=== PATIENT | female | born 1960 | race Caucasian/White ===

== ENCOUNTER 2023-06-12 01:54 | Observation (INO) | payer BC ==
[2023-06-12] MEDS ORDERED: NALOXONE 0.4 MG/ML 1 ML VIAL IV PRN ×2 (02:48→09:43)
[2023-06-12] MEDS ORDERED: ONDANSETRON 4 MG/2 ML VIAL IVP PRN ×2 (02:48→09:43)
--- NOTE | 2023-06-12 02:53 | ED ---
Recheck HPI - General Chief Complaint: Abdominal Pain Stated Complaint: Appendicitis Time Seen by Provider: 06/12/23 01:56 Source: patient, EMS, RN notes reviewed, old records reviewed Mode of arrival: EMS Limitations: no limitations - History of Present Illness Initial Comments: This is a 62-year-old female to the ER for evaluation today. Patient Dese for evaluation of acute appendicitis patient will be placed on persistent IV antibiotics, pain control and surgical consultation MD Complaint: abnormal lab (acute appendicitis) -: days(s) Returns Today for: needs IV antibiotics, persistent/worsening pain related to initial visit Symptoms Since Prior Visit: worsening pain Associated Symptoms: none Treatments Prior to Arrival: Given Antibiotics on, Given Pain Meds on - Related Data Home Medications Medication Instructions Recorded Confirmed Travsi/D3/Mag11/Zinc/Nailer Operator/Devonte/Bor 1 tab PO BID 06/12/23 06/12/23 [Caltrate 600+D Plus Tablet] Cyanocobalamin (Vitamin B-12) 1,000 mcg PO DAILY 06/12/23 06/12/23 [Vitamin B-12] Ezetimibe [Zetia] 10 mg PO HS 06/12/23 06/12/23 Fenofibrate Nanocrystallized 145 mg PO HS 06/12/23 06/12/23 [Fenofibrate] Irbesartan/Hydrochlorothiazide 1 tab PO DAILY 06/12/23 06/12/23 [Avalide 300-12.5 mg Tablet] Pravastatin Sodium [Pravachol] 40 mg PO HS 06/12/23 06/12/23 Ubidecarenone [Coenzyme Q10] 100 mg PO DAILY 06/12/23 06/12/23 metFORMIN HCL [Glucophage] 500 mg PO BID 06/12/23 06/12/23 Previous Rx's Medication Instructions Recorded Acetaminophen Tab [Tylenol] 650 mg PO Q6HR PRN tab 06/13/23 Ibuprofen [Motrin] 600 mg PO Q8HR PRN #30 tab 06/13/23 Levofloxacin [Levaquin] 500 mg PO DAILY 10 Days #10 tab 06/13/23 metroNIDAZOLE [Flagyl] 500 mg PO TID 10 Days #30 tab 06/13/23 oxyCODONE HCL [OxyIR] 5 mg PO Q6H PRN 3 Days #12 tab 06/13/23 Allergies Allergy/AdvReac Type Severity Reaction Status Date / Time No Known Allergies Allergy Verified 06/12/23 11:11 Review of Systems ROS Statement: Those systems with pertinent positive or pertinent negative responses have been documented in the HPI. ROS Other: All systems not noted in ROS Statement are negative. Past Medical History Past Medical History: Hyperlipidemia, Hypertension Past Surgical History: Hysterectomy Smoking Status: Never smoker Past Alcohol Use History: None Reported Past Drug Use History: None Reported General Exam Limitations: no limitations General appearance: alert, in no apparent distress Head exam: Present: atraumatic, normocephalic, normal inspection Eye exam: Present: normal appearance, PERRL, EOMI. Absent: scleral icterus, conjunctival injection, periorbital swelling ENT exam: Present: normal exam, mucous membranes moist Neck exam: Present: normal inspection. Absent: tenderness, meningismus, lymphadenopathy Respiratory exam: Present: normal lung sounds bilaterally. Absent: respiratory distress, wheezes, rales, rhonchi, stridor Cardiovascular Exam: Present: regular rate, normal rhythm, normal heart sounds. Absent: systolic murmur, diastolic murmur, rubs, gallop, clicks GI/Abdominal exam: Present: soft, normal bowel sounds. Absent: distended, tenderness, guarding, rebound, rigid Extremities exam: Present: normal inspection, full ROM, normal capillary refill. Absent: tenderness, pedal edema, joint swelling, calf tenderness Back exam: Present: normal inspection Neurological exam: Present: alert, oriented X3, CN II-XII intact Psychiatric exam: Present: normal affect, normal mood Skin exam: Present: warm, dry, intact, normal color. Absent: rash Course Vital Signs 06/12/23 06/12/23 01:56 03:23 Temperature 98.7 F Pulse Rate 90 73 Respiratory 18 18 Rate Blood Pressure 160/62 122/55 O2 Sat by Pulse 97 97 Oximetry - Reevaluation(s) Reevaluation #1: 06/12/23 02:53 Medical record is reviewed Reevaluation #2: 06/12/23 02:53 Patient's pain is improved Reevaluation #3: 06/12/23 02:53 Patient informed results questions answered Reevaluation #4: 06/12/23 02:53 Was pt. sent in by a medical professional or institution (, PA, RECONCILING CLERK, urgent care, hospital, or [facility]...) When possible be specific @ -no Did you speak to anyone other than the patient for history (EMS, parent, family, police, friend...)? What history was obtained from this source @ -no Did you review nursing and triage notes (agree or disagree)? Why? @ -agree Are old charts reviewed (outside hosp., previous admission, EMS record, old EKG, old radiological studies, urgent care reports/EKG's, [facility] records)? Report findings @ -yes Differential Diagnosis (chest pain, altered mental status, abdominal pain women, abdominal pain men, vaginal bleeding, weakness, fever, dyspnea, syncope, headache, dizziness, GI bleed, back pain, seizure, CVA, palpatations, mental health, musculoskeletal)? @ -prior EKG interpreted by me (3pts min.). @ -yes X-rays interpreted by me (1pt min.). @ -yes CT interpreted by me (1pt min.). @ -yes positive for acute appendicitis U/S interpreted by me (1pt. min.). @ -no What testing was considered but not performed or refused? (CT, X-rays, U/S, labs)? Why? @ -none What meds were considered but not given or refused? Why? @ -none Did you discuss the management of the patient with other professionals (professionals i.e. , PA, RECONCILING CLERK, lab, RT, psych nurse, director of social work, electrical fitter, teacher, traffic control officer, lining caser)? Give summary @ -no Was smoking cessation discussed for >3mins.? @ -no Was critical care preformed (if so, how long)? @ -no Were there social determinants of health that impacted care today? How? (Homelessness, low income, unemployed, alcoholism, drug addiction, transportation, low edu. Level, literacy, decrease access to med. care, fpc, rehab)? @ -none Was there de-escalation of care discussed even if they declined (Discuss DNR or withdrawal of care, Hospice)? DNR status @ -no What co-morbidities impacted this encounter? (DM, HTN, Smoking, COPD, CAD, Cancer, CVA, ARF, Chemo, Hep., AIDS, mental health diagnosis, sleep apnea, morbid obesity)? @ -none Was patient admitted / discharged? Hospital course, mention meds given and route, prescriptions, significant lab abnormalities, going to OR and other perti nent info. @ - 62 female to the ER accepted in transfer for acute appendicitis patient will admit for surgical consultation and IV antibiotics Admitted Undiagnosed new problem with uncertain prognosis? @ -no Drug Therapy requiring intensive monitoring for toxicity (Heparin, Nitro, Insulin, Cardizem)? @ -no Were any procedures done? @ -no Diagnosis/symptom? @ -Acute appendicitis Acute, or Chronic, or Acute on Chronic? @ -Acute Uncomplicated (without systemic symptoms) or Complicated (systemic symptoms)? @ -Complicated Side effects of treatment? @ -no Exacerbation, Progression, or Severe Exacerbation? @ -exacerbation Poses a threat to life or bodily function? How? (Chest pain, USA, CA, pneumonia, PE, COPD, DKA, ARF, appy, cholecystitis, CVA, Diverticulitis, Homicidal, Suicidal, threat to staff... and all critical care pts) @ -yes Reevaluation #5: 06/12/23 02:53 Differential Abdominal Pain Men: Appendicitis, cholecystitis, diverticulosis, ischemic bowel, pancreatitis, hepatitis, UTI, gastroenteritis, AAA, incarcerated hernia, bowel obstruction, constipation, inflammatory bowel, hepatitis, peptic ulcer disease, splenic infarction, perforated viscus, testicular torsion, this is not meant to be an all-inclusive list - Consultations Consultation #1: Spoke with surgical pharmacy operations manager who will admit this patient Medical Decision Making - Medical Decision Making 62 female to the ER accepted in transfer for acute appendicitis patient will admit for surgical consultation and IV antibiotics - Radiology Data Radiology results: report reviewed (CT of the abdomen and pelvis negative for acute disease) Disposition Clinical Impression: Abdominal pain, Acute appendicitis Disposition: ADMITTED IP TO THIS [facility] Condition: Stable Is patient prescribed a controlled substance at d/c from ED?: No Time of Disposition: 03:00
[2023-06-12] MEDS: SODIUM CHLORIDE 0.9% 1,000 ML IV SCH (02:55)
[2023-06-12] MEDS: MORPHINE SULFATE 4 MG/ML SYRINGE IV PRN (03:07)
[2023-06-12 06:42] VITALS: RESP 16
--- NOTE | 2023-06-12 08:49 | P.GSHP ---
History of Present Illness H&P Date: 06/12/23 Chief Complaint: Acute appendicitis This is a 62-year-old female who was transferred from [facility] last night due to complaints of abdominal pain. Patient underwent computed tomography scan shows evidence of appendicitis. Patient states she's had pain for approximately 24-36 hours. Patient was admitted to the local surgeon last night. Past Medical History Past Medical History: Hyperlipidemia, Hypertension Additional Past Medical History / Comment(s): prediabetic History of Any Multi-Drug Resistant Organisms: None Reported Past Surgical History: Hysterectomy Smoking Status: Never smoker Past Alcohol Use History: None Reported Past Drug Use History: None Reported Medications and Allergies Allergies Allergy/AdvReac Type Severity Reaction Status Date / Time No Known Allergies Allergy Verified 06/12/23 01:59 Surgical - Exam Vital Signs Temp Pulse Resp BP Pulse Ox 98.7 F 90 18 160/62 97 06/12/23 01:56 06/12/23 01:56 06/12/23 01:56 06/12/23 01:56 06/12/23 01:56 - General well developed, well nourished, no distress - Eyes PERRL - ENT normal pinna - Neck no masses - Respiratory normal expansion - Cardiovascular Rhythm: regular - Abdomen Pain right lower quadrant Abdomen: soft, tender Assessment and Plan Assessment: Acute appendicitis. Patient will undergo laparoscopic appendectomy.
[2023-06-12] MEDS ORDERED: ROCURONIUM 10 MG/ML (5 ML VIAL) IV ONE (09:04)
[2023-06-12] MEDS ORDERED: MIDAZOLAM 2 MG/2 ML VIAL ONE (09:04)
[2023-06-12] MEDS ORDERED: SUCCINYLCHOLINE CHLORIDE 200 MG/10 ML VIAL IV ONE (09:04)
[2023-06-12] MEDS ORDERED: PROPOFOL 10 MG/ML 20 ML VIAL IV ONE (09:04)
[2023-06-12] MEDS ORDERED: fentaNYL (PF) 50 MCG/ML 2 ML AMP ONE (09:04)
[2023-06-12] MEDS ORDERED: LIDOCAINE 1% INJ 10MG/ML (20 ML MDV) ONE (09:04)
[2023-06-12] MEDS ORDERED: SUGAMMADEX SODIUM 200 MG/2 ML SDV IV ONE (09:04)
[2023-06-12] MEDS: IV FLUID CONTINUATION 1,000 ML IV ONE (09:05)
[2023-06-12] MEDS: DEXAMETHASONE SOD PHOSPHATE 4 MG/ML 1 ML VIAL IVP ONE (09:05)
[2023-06-12] MEDS: ONDANSETRON 4 MG/2 ML VIAL IVP ONE (09:05)
[2023-06-12] MEDS: SODIUM CHLORIDE 0.9% 1,000 ML IV ONE (09:08)
[2023-06-12] MEDS: SODIUM CHLORIDE 0.9% 50 ML with ceFAZolin 2,000 MG IV ONE (09:23)
[2023-06-12] MEDS: BUPIVACAINE (PF) 0.25% 30 ML VIAL SQ ONE (09:25)
[2023-06-12] MEDS: LACTATED RINGERS 1,000 ML IV ONE ×2 (09:33→12:45)
--- NOTE | 2023-06-12 09:42 | P.OP ---
Date of Procedure: 06/12/23 Preoperative Diagnosis: Acute appendicitis Postoperative Diagnosis: Acute appendicitis Procedure(s) Performed: Laparoscopic appendectomy Anesthesia: SONIA Surgeon: Luis Andres Estimated Blood Loss (ml): 5 Pathology: other (Appendix) Condition: stable Disposition: PACU Description of Procedure: The patient's placed on the operating table in the supine position. The patient received general anesthesia. The abdomen was prepped and draped in the usual sterile fashion. The skin was anesthetized 1% local Xylocaine at the trocar sites. Using an 11 blade the skin was incised at the umbilicus. The umbilicus was grasped with a [place] clamp and then a Veress needle was placed into the peritoneal cavity. Position of the Veress needle was confirmed with positive drop test. After adequate insufflation a 5 mm trocar was placed into the peritoneal cavity. The abdomen was further insufflated. And then the laparoscope was placed in the peritoneal cavity. Next a 5 mm trocar was placed in the midline suprapubic position. And then a 10 mm trocar was placed in the midline epigastric position. The patient was rotated with the right side up and in Trendelenburg. The appendix was visualized. The appendix appeared to be inflamed. The appendix was grasped and then using the Harmonic scissors the mesoappendix was divided. A PDS Endoloop was then placed around the base of the appendix. And then the appendix was divided using Harmonic scissors. The appendix was placed into an Endo Catch and brought out through the 10 mm trocar site. The abdomen was irrigated. There is no bleeding seen. The trochars withdrawn. The skin was closed interrupted 3-0 Monocryl suture. Dermabond dressing was applied. Patient was sent to recovery room in stable condition.
[2023-06-12] MEDS ORDERED: HYDROmorphone 0.5 MG/0.5 ML SYRINGE IVP PRN (09:43)
[2023-06-12] MEDS: CLINDAMYCIN 600 MG in DEXTROSE 5% IN WATER 50 ML IVPB STA (09:52)
[2023-06-12 09:59] LABS: Glucose,Whole Blood 107 mg/dL (70-110)
[2023-06-12] MEDS: HYDROmorphone 0.5 MG/0.5 ML SYRINGE IVP ONE (10:06)
[2023-06-12] MEDS: KETOROLAC 15 MG/ML 1 ML VIAL IVP SCH (12:34)
[2023-06-12] MEDS: PANTOPRAZOLE 40 MG/10 ML VIAL IV SCH (12:35)
[2023-06-12] MEDS ORDERED: DEXTROSE 50% SYRINGE 50 ML IVP PRN ×2 (14:09)
--- NOTE | 2023-06-12 14:11 | P.CONS ---
History of Present Illness - Reason for Consult Consult date: 06/12/23 Medical management Requesting physician: Luis Andres - Chief Complaint Abdominal pain - History of Present Illness This is a pleasant 62-year-old patient, follows with Dr. Mohan. Chronic stable medical conditions include hypertension, hyperlipidemia, prediabetes, Patient yesterday started getting pain in the right lower quadrant. There was some chills. Nausea. Transferred from [facility]. At his computed tomography scan done there. Acute acute appendicitis. This morning patient underwent laparoscopic appendectomy. Postprocedure some pain present. In bed. Tired. No nausea vomiting. Has been ordered regular food by Dr. Andres. For lunch. Review of systems: GEN.: Tired EYES: None HEENT: None NECK: None RESPIRATORY: None CARDIOVASCULAR: None GASTROINTESTINAL: As above GENITOURINARY: None MUSCULOSKELETAL: None LYMPHATICS: None HEMATOLOGICAL: None PSYCHIATRY: None NEUROLOGICAL: None Social history: Patient works as a HAIR COLORIST. Discussed with daughter. No smoking or alcohol. Physical examination: VITAL SIGNS: 97, 72, 16, 11 7 x 52, 94% room air GENERAL: BMI 29.7, declining but awake a bit tired. EYES: Pupils equal. Conjunctiva normal. HEENT: External appearance of nose and ears normal, oral cavity grossly normal. NECK: JVD not raised; masses not palpable. HEART: First and second heart sounds are normal; no edema. LUNGS: Respiratory rate normal; clear to auscultation. ABDOMEN: Soft, tenderness, no guarding rigidity, liver spleen not palpable, no masses palpable. PSYCH: Alert and oriented x3; mood and affect normal. MUSCULOSKELETAL:No Clubbing/cyanosis;muscles-grossly intact NEUROLOGICAL: Cranial nerves grossly intact; no facial asymmetry, power and sensation grossly intact. LYMPHATICS: No lymph nodes palpable in the axilla and neck Assessment and plan: -Acute appendicitis. Followed by laparoscopic appendectomy with Dr. Andres this morning. Patient been ordered regular diet for lunch by surgery. -Hyperlipidemia Pravachol. Fenofibrate. Zetia -Essential hypertension avalide -Prediabetes. Gallbladder consistent diet. Metformin. Accu-Cheks as sinus insulin. Discussed with patient. Activity started. Questions answered. IV fluids. Thank you Dr. Andres Past Medical History Past Medical History: Hyperlipidemia, Hypertension Additional Past Medical History / Comment(s): prediabetic History of Any Multi-Drug Resistant Organisms: None Reported Past Surgical History: Hysterectomy Smoking Status: Never smoker Past Alcohol Use History: None Reported Past Drug Use History: None Reported Medications and Allergies Home Medications Medication Instructions Recorded Confirmed Type Travis/D3/Mag11/Zinc/Binder Folder Operator/Devonte/Bor 1 tab PO BID 06/12/23 06/12/23 History [Caltrate 600+D Plus Tablet] Cyanocobalamin (Vitamin B-12) 1,000 mcg PO DAILY 06/12/23 06/12/23 History [Vitamin B-12] Ezetimibe [Zetia] 10 mg PO HS 06/12/23 06/12/23 History Fenofibrate Nanocrystallized 145 mg PO HS 06/12/23 06/12/23 History [Fenofibrate] Irbesartan/Hydrochlorothiazide 1 tab PO DAILY 06/12/23 06/12/23 History [Avalide 300-12.5 mg Tablet] Pravastatin Sodium [Pravachol] 40 mg PO HS 06/12/23 06/12/23 History Ubidecarenone [Coenzyme Q10] 100 mg PO DAILY 06/12/23 06/12/23 History metFORMIN HCL [Glucophage] 500 mg PO BID 06/12/23 06/12/23 History Allergies Allergy/AdvReac Type Severity Reaction Status Date / Time No Known Allergies Allergy Verified 06/12/23 11:11 Physical Exam Vitals: Vital Signs Temp Pulse Pulse Resp BP BP Pulse Ox 06/12/23 10:32 72 16 108/53 99 06/12/23 10:20 74 16 117/52 94 L 06/12/23 10:05 82 16 118/54 100 06/12/23 09:55 81 16 162/72 97 06/12/23 09:48 97.0 F L 88 16 170/100 100 06/12/23 07:00 98.1 F 73 16 113/65 99 06/12/23 04:02 98.5 F 73 16 149/73 98 06/12/23 03:23 73 18 122/55 97 06/12/23 01:56 98.7 F 90 18 160/62 97 Intake and Output 06/11/23 06/12/23 06/12/23 22:59 06:59 14:59 Intake Total 504 Output Total 5 Balance 499 Intake: IV 504 Output: Estimated Blood Loss 5 Other: # Voids 2 Weight 66.678 kg
[2023-06-12] MEDS: INSULIN ASPART (NovoLOG) 100 UNIT/ML VIAL SQ SCH (14:43)
[2023-06-12] MEDS: ACETAMINOPHEN TAB 325 MG TAB PO PRN (15:37)
[2023-06-12 17:46] LABS: Glucose,Whole Blood 151 mg/dL (70-110)
[2023-06-12] MEDS: metFORMIN 500 MG TAB PO SCH (18:57)
[2023-06-12 20:07] LABS: Glucose,Whole Blood 166 mg/dL (70-110)
[2023-06-12] MEDS: NAPROXEN 250 MG TAB PO PRN (21:51)
[2023-06-12] MEDS: PRAVASTATIN SODIUM 40 MG TAB PO SCH (21:52)
[2023-06-12] MEDS: EZETIMIBE 10 MG TAB PO SCH (21:52)
[2023-06-12] MEDS: FENOFIBRATE 160 MG TAB PO SCH (21:52)
[2023-06-12] MEDS: CALCIUM CARB-VIT D 500 MG-5 MCG TAB PO SCH (21:52)
[2023-06-13 02:57] VITALS: TEMP 98.1
[2023-06-13 06:18] LABS: Glucose,Whole Blood 119 mg/dL (70-110)
[2023-06-13] MEDS ORDERED: NON FORMULARY DRUG (Ubidecarenone [Coenzyme Q10] 50 MG Capsule) PO SCH (09:00)
[2023-06-13 09:09] VITALS: BP 131/67; PULSE 68
[2023-06-13] MEDS: hydroCHLOROthiazide 12.5 MG CAP PO SCH (09:10)
[2023-06-13] MEDS: LOSARTAN 50 MG TAB PO SCH (09:10)
[2023-06-13] MEDS: CYANOCOBALAMIN 500 MCG TAB PO SCH (09:10)
[2023-06-13] MEDS: ENOXAPARIN 40 MG/0.4 ML SYRINGE SQ SCH (09:13)
--- NOTE | 2023-06-13 12:04 | P.DS ---
Providers Date of admission: 06/12/23 02:50 Expected date of discharge: 06/13/23 Attending physician: Ashley Montalvo MD Consults: 06/12/23 09:43 Consult Physician Routine Consulting Provider: Vadim Perry Consult Reason/Comments: Medical management Do you want consulting provider notified?: Yes 06/13/23 07:51 Consult Physician Routine Consulting Provider: Luis Andres Consult Reason/Comments: appendicitis Do you want consulting provider notified?: Already Contacted Primary care physician: [facility] Course: Discharge diagnosis 1. Acute appendicitis Hospital course This is a 62-year-old female was a transfer from [facility] phalanx of right lower quadrant abdominal pain. Computed tomography scan did show evidence of acute appendicitis. Patient is status post laparoscopic appendectomy. Patient tolerated surgery well. Pain is controlled. She is tolerating diet. She did have a bowel movement. She has been up and ambulating. She is afebrile. She is stable for discharge. Please refer to chart for any further details. Physician Crop Roller note has been reviewed by physician. Signing provider agrees with the documented findings, assessment, and plan of care. Patient Condition at Discharge: Stable Plan - Discharge Summary New Discharge Prescriptions: New Ibuprofen [Motrin] 600 mg PO Q8HR PRN #30 tab PRN Reason: Pain oxyCODONE HCL [OxyIR] 5 mg PO Q6H PRN 3 Days #12 tab PRN Reason: Pain metroNIDAZOLE [Flagyl] 500 mg PO TID 10 Days #30 tab Acetaminophen Tab [Tylenol] 650 mg PO Q6HR PRN tab PRN Reason: Mild Pain Or Fever >= 100.5 Levofloxacin [Levaquin] 500 mg PO DAILY 10 Days #10 tab Continue Travis/D3/Mag11/Zinc/Nurse Executive/Devonte/Bor [Caltrate 600+D Plus Tablet] 1 tab PO BID Cyanocobalamin (Vitamin B-12) [Vitamin B-12] 1,000 mcg PO DAILY Irbesartan/Hydrochlorothiazide [Avalide 300-12.5 mg Tablet] 1 tab PO DAILY Pravastatin Sodium [Pravachol] 40 mg PO HS Ezetimibe [Zetia] 10 mg PO HS Fenofibrate Nanocrystallized [Fenofibrate] 145 mg PO HS metFORMIN HCL [Glucophage] 500 mg PO BID Ubidecarenone [Coenzyme Q10] 100 mg PO DAILY Discharge Medication List Travis/D3/Mag11/Zinc/Nurse Executive/Devonte/Bor [Caltrate 600+D Plus Tablet] 1 tab PO BID 06/12/23 [History] Cyanocobalamin (Vitamin B-12) [Vitamin B-12] 1,000 mcg PO DAILY 06/12/23 [History] Ezetimibe [Zetia] 10 mg PO HS 06/12/23 [History] Fenofibrate Nanocrystallized [Fenofibrate] 145 mg PO HS 06/12/23 [History] Irbesartan/Hydrochlorothiazide [Avalide 300-12.5 mg Tablet] 1 tab PO DAILY 06/12/23 [History] Pravastatin Sodium [Pravachol] 40 mg PO HS 06/12/23 [History] Ubidecarenone [Coenzyme Q10] 100 mg PO DAILY 06/12/23 [History] metFORMIN HCL [Glucophage] 500 mg PO BID 06/12/23 [History] Acetaminophen Tab [Tylenol] 650 mg PO Q6HR PRN tab 06/13/23 [Rx] Ibuprofen [Motrin] 600 mg PO Q8HR PRN #30 tab 06/13/23 [Rx] Levofloxacin [Levaquin] 500 mg PO DAILY 10 Days #10 tab 06/13/23 [Rx] metroNIDAZOLE [Flagyl] 500 mg PO TID 10 Days #30 tab 06/13/23 [Rx] oxyCODONE HCL [OxyIR] 5 mg PO Q6H PRN 3 Days #12 tab 06/13/23 [Rx] Follow up Appointment(s)/Referral(s): Brat Mohan MD [Primary Care Provider] - 1-2 days Luis Andres MD [STAFF PHYSICIAN] - 1 Week Activity/Diet/Wound Care/Special Instructions: No driving while taking OxyIR No lifting over 10 pounds Shower daily. No soaking or tub baths for 2 weeks Very light activity until you are reevaluated at your follow up appointment with your surgeon Discharge Disposition: HOME SELF-CARE
--- NOTE | 2023-06-13 15:28 | P.PN ---
Progress Note - Text Progress Note Date: 06/13/23 - Chief Complaint Abdominal pain - History of Present Illness This is a pleasant 62-year-old patient, follows with Dr. Mohan. Chronic stable medical conditions include hypertension, hyperlipidemia, prediabetes, Patient yesterday started getting pain in the right lower quadrant. There was some chills. Nausea. Transferred from [facility]. At his computed tomography scan done there. Acute acute appendicitis. This morning patient underwent laparoscopic appendectomy. Postprocedure some pain present. In bed. Tired. No nausea vomiting. Has been ordered regular food by Dr. Andres. For lunch. 06/13/2023: Tolerating diet. No nausea vomiting. Slight discomfort as well as surgical site. Did ambulate. Did have a small BM. Doing well. 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 No smoking or alcohol. Physical examination: VITAL SIGNS: 98.1, 68, 16, 131/67, 98% room air GENERAL: Up in a chair, comfortable EYES: Pupils equal. Conjunctiva normal. HEENT: External appearance of nose and ears normal, oral cavity grossly normal. NECK: JVD not raised; masses not palpable. HEART: First and second heart sounds are normal; no edema. LUNGS: Respiratory rate normal; clear to auscultation. ABDOMEN: Soft, mild tenderness, no guarding rigidity, liver spleen not palpable, no masses palpable. PSYCH: Alert and oriented x3; mood and affect normal. MUSCULOSKELETAL:No Clubbing/cyanosis;muscles-grossly intact Accu-Cheks noted Assessment and plan: -Acute appendicitis. Followed by laparoscopic appendectomy with Dr. Andres Doing well. Tolerating diet. -Hyperlipidemia Pravachol. Fenofibrate. Zetia -Essential hypertension avalide -Prediabetes. Carbohydrate consistent diet. Metformin. Accu-Cheks as sinus insulin. Doing well. Follow-up with PCP if discharged. Thank you Dr. Andres Past Medical History Past Medical History: Hyperlipidemia, Hypertension Additional Past Medical History / Comment(s): prediabetic History of Any Multi-Drug Resistant Organisms: None Reported Past Surgical History: Hysterectomy Smoking Status: Never smoker Past Alcohol Use History: None Reported Past Drug Use History: None Reported
== END 2023-06-13 13:36 | disposition home or self-care (01) ==
LOC: EC 01:54 → INTOOBSV 02:50 → 6NMEDSUR 02:50 → UNDODISIN 06-13 13:36
PROVIDERS: ADMIT Surgery; ATTEND Surgery
PROC: 0DTJ4ZZ Resection of Appendix, Percutaneous Endoscopic Approach (ICD-10-PCS; principal; 2023-06-12 08:30)
DX: K35.80 Unspecified acute appendicitis (principal); I10 Essential (primary) hypertension; R73.03 Prediabetes; E78.5 Hyperlipidemia, unspecified; Z79.84 Long term (current) use of oral hypoglycemic drugs; Z79.899 Other long term (current) drug therapy
CPT/HCPCS: 96372; 96374; 99285; 88304; 44970; G0378 ×2; J2250; J0330; J2270; J1100; J2405; J0690; J2001; J1650; J3010; J1885; J2704; J1170; J0736; J0665